=== PATIENT | male | born 1940 | race Caucasian/White ===

== ENCOUNTER → 2018-07-21 10:16 | Outpatient (CLI) | payer MEDICARE, OTHER | END | disposition home or self-care (01) | LOC: D.LABREF 10:16 | DX: M17.11 Unilateral primary osteoarthritis, right knee (principal); Z11.8 Encounter for screening for other infectious and parasitic diseases ==

== ENCOUNTER 2018-09-02 12:45 | Inpatient (IN) | payer MEDICARE, OTHER ==
[2018-08-31 15:56] LABS: BASOPHILS 0.5 % (0-2); EOSINOPHILS 6.1 % (0-7); HEMATOCRIT 40.4 % (42.0-54.0); HEMOGLOBIN 13.5 g/dL (13.5-17.5); IMMATURE GRANULOCYTES 0.2 % (0-5); LYMPHOCYTES 23.1 % (15-50); MCH 31.8 pg (26.0-34.0); MCHC 33.4 g/dL (31.0-37.0); MCV 95.3 fL (80.0-100.0); NEUTROPHILS 62.1 % (40-80); PLATELET COUNT 178 10x3/uL (130-400); RBC 4.24 10x6/uL (4.20-6.10); RDW 14.4 % (11.5-14.5); WBC 6.3 10x3/uL (4.8-10.8)
[2018-08-31 16:15] LABS: APTT 28.2 SECONDS (22.8-39.4); INR 1.12 (0.85-1.17); PROTIME 13.9 SECONDS (11.6-15.0)
[2018-08-31 16:28] LABS: CALCIUM 9.6 mg/dL (8.5-10.1); CREATININE - SERUM 1.1 mg/dL (0.6-1.3)
[2018-08-31 17:08] LABS: APPEARANCE CLEAR (CLEAR); BILIRUBIN NEGATIVE (NEGATIVE); COLOR YELLOW (YELLOW); GLUCOSE NEGATIVE (NEGATIVE); KETONE NEGATIVE (NEGATIVE); NITRITE NEGATIVE (NEGATIVE); PROTEIN NEGATIVE (NEGATIVE); UROBILINOGEN NORMAL (NORMAL)
[2018-08-31 17:09] LABS: BACTERIA FEW /hpf (NONE SEEN); RED CELLS - URINE OCC /hpf (0-5); WHITE CELLS - URINE 0-5 /hpf (0-5)
[~2018-09-02] VITALS: Ht 167.6 cm; Wt 118.2 kg
[~2018-09-02 12:45] MED LIST: ACCOLATE20 MG PO; ACETAMINOPHEN325 MG PO; ADVAIR HFA 230-12 GM INH; AMITIZA24 MCG PO; ASCORBIC ACID500 MG PO; GLUCOPHAGE500 MG PO; JANUVIA100 MG PO; K-TAB10 MEQ PO; LUNESTA2 M1 PO; MAG-OX 400 MG400 MG PO; METOLAZONE5 MG PO; MIRAPEX1 MG PO; PAXIL20 MG PO; PLAVIX75 MG PO; SPIRIVA18 MCG INH; SUPER B COMPLE150 MG PO; TORSEMIDE20 MG PO; TRICOR145 MG PO; UROXATRAL10 MG PO; VITAMIN B-121000 MCG PO; VITAMIN D5000 UNIT PO; ZINC50 MG PO; ZOCOR40 MG PO; ZYLOPRIM300 MG PO
[2018-09-02] MEDS ORDERED: SPIRIVA18 MCG INH (13:46)
[2018-09-02 14:25] VITALS: BP 119/58; BMI 11.0
[2018-09-02 19:32] VITALS: BP 123/63
[2018-09-02 20:00] VITALS: BP 130/58
[2018-09-02 23:46] VITALS: Ht 167.6 cm; Wt 118.2 kg
[2018-09-03] VITALS: BP 125/61
[2018-09-03 03:00] VITALS: BP 121/56
[2018-09-03 05:50] LABS: HEMATOCRIT 36.1 % (42.0-54.0); MCH 31.3 pg (26.0-34.0); MCHC 33.2 g/dL (31.0-37.0); MCV 94.3 fL (80.0-100.0); MEAN PLATELET VOLUME 10.1 fL (7.4-10.4); RBC 3.83 10x6/uL (4.20-6.10); RDW 14.5 % (11.5-14.5); WBC 6.2 10x3/uL (4.8-10.8)
--- NOTE | 2018-09-03 07:35 | OP ---
PATIENT NAME: YOMI GÓMEZ MEDICAL RECORD: [id number] :44 LOCATION:D.[facility] [id number] ADMISSION DATE:09/02/18 SURGEON: ANDRAE PROCTOR DO DATE OF OPERATION: 09/02/2018 PROCEDURE PERFORMED: Right knee quad tendon repair with polyethylene exchange of the right total knee. PREOPERATIVE DIAGNOSIS: Right quad tendon tear following a right total knee. POSTOPERATIVE DIAGNOSIS: Right quad tendon tear following a right total knee. SURGEON: Andrae Proctor DO INDICATIONS: Mr. Gómez is a 78-year-old male who had a knee replacement done at another hospital in November of last year. A couple of weeks after the surgery, he was in the shower fell and felt a pop and felt a palpable defect on the medial side of his knee and loss of strength with extension of the right knee, he did have motion, but he did lose strength. He went to see a surgeon and he did not repair at that time. He came to me last month and said he was tired of dealing with the loss of strength and had been walking on a walker and wanted something done. I told him I could repair that quad tendon and capsule and at the same time, I would swap out his poly and he was okay with that and he was aware of the risks and benefits of the procedure including infection, bleeding, damage to nerve vessels, need for further surgery, rupture of the quad tendon repair and blood clots and even . He signed the consent. DESCRIPTION OF PROCEDURE: The patient was given a block by anesthesia in the preoperative area and taken back to the OR and laid on his right side and a spinal was put in by anesthesia. He was then laid supine and the right lower extremity was prepped and draped in sterile fashion. Timeout was performed, everyone was agreeance with the correct side, site, patient, and procedure. The patient was given 2 grams of Ancef and 80 mg of gentamicin preoperatively. The incision was then marked out from the prior incision and Ioban was placed over the knee. The incision began with a 10 blade scalpel carefully down to the knee itself over the patella. There was some tissue over the knee. However, this was not the VMO tendon and this was opened up. The knee joint was opened up. The polyethylene was removed. It was a #12 and trialed a #14, #14 fit very well. The knee was then thoroughly irrigated and while the knee was being irrigated, the VMO muscle and the scar tissue from the quad tendon repair more proximal was freed up using a pickup and Metzenbaum scissors. Once the plane was developed and a good tissue was discovered, the #14 E-poly anterior stabilized poly was put in and locked into place with a locking mechanism. The knee was then irrigated more and Surgicel beads were placed in the gutters and vancomycin and tobramycin powder were placed in the knee. The quad and capsule were then closed with #2 Ethibond suture in a qglmmb-ys-uadly fashion, had a nice quad tendon repair more proximal as well as the VMO was more approximated to the capsule itself. This was all done with #2 Ethibond. The capsule was then irrigated and more vancomycin and tobramycin powders were placed on top of that and then the skin was closed with 2-0 Vicryl in an inverted interrupted fashion. A ZipLine was placed on the knee. After the ZipLine was placed, Adaptic, 4 x 4's, ABD, Webril, and Mario wrap were placed on the knee. A DARA hose stocking was placed up to the knee. OPERATIVE REPORT [id number] YOMI GÓMEZ The patient was awake during the procedure and did well. He was then taken to PACU in stable condition. Blood loss mgynatdagbtop315 mL. COMPLICATIONS: None. TRANSINT:[id number] Voice Confirmation ID: [id number] DOCUMENT ID: [id number] ANDRAE PROCTOR DO at 0735 CC: [id number] DICTATION DATE: 09/02/181919 GANG PLANK WORKMAN: 09/03/18 0510 [facility] IN [facility] [address] [id number]
[2018-09-03 07:49] LABS: ALBUMIN 2.9 g/dL (3.4-5.0); ALKALINE PHOSPHATASE 23 U/L (46-116); ALT (SGPT) 27 U/L (10-68); BILIRUBIN - TOTAL 0.34 mg/dL (0.2-1.3); CALC OSMOLALITY 284 mosm/kg (275-300); CALCIUM 8.1 mg/dL (8.5-10.1); CARBON DIOXIDE 24.8 mmol/L (21.0-32.0); CHLORIDE - SERUM 105 mmol/L (98-107); CREATININE - SERUM 0.9 mg/dL (0.6-1.3); GLUCOSE 134 mg/dL (74-106); POTASSIUM - SERUM 3.5 mmol/L (3.5-5.1); PROTEIN - SERUM 5.9 g/dL (6.4-8.2); SODIUM 140 mmol/L (136-145); UREA NITROGEN 23 mg/dL (7-18); eGFR NON AFRICAN AMERICAN 87 mL/min (90-120)
[2018-09-03 11:03] VITALS: BP 126/75
[2018-09-03 13:39] LABS: APPEARANCE CLEAR (CLEAR); BILIRUBIN NEGATIVE (NEGATIVE); COLOR YELLOW (YELLOW); GLUCOSE NEGATIVE (NEGATIVE); KETONE NEGATIVE (NEGATIVE); NITRITE NEGATIVE (NEGATIVE); PROTEIN NEGATIVE (NEGATIVE); UROBILINOGEN NORMAL (NORMAL)
[2018-09-03 14:52] LABS: % SATURATION 21 % (15-55); IRON 62 ug/dl (35-150); TOTAL IRON BIND CAPACITY 289 ug/dl (260-445); UNSAT IRON BIND CAPACITY 227 ug/dl (150-375)
[2018-09-03 14:55] VITALS: BP 136/62
--- NOTE | 2018-09-03 14:57 | MORECARE ---
CASE MANAGEMENT DISCHARGE SUMMARY PATIENT: YOMI GÓMEZ UNIT: [id number] ADM DATE: 09/02/18 AGE: 78 : 42 SEX: M ROOM/BED: D.2209 AUTHOR: HUSEYIN KONG PHYSICIAN: REFERRING PHYSICIAN: YA PROCTOR DO DATE OF SERVICE: 09/03/18 Discharge Plan Patient Name: YOMI GÓMEZ Facility[facility]:[place] : 1940 Planned Disposition: Inpatient Rehab Anticipated Discharge Date: 09/05/18 Discharge Date: Expected LOS: 3 Initial Reviewer: [email or web address] Initial Review Date: 09/03/2018 Generated: 09/03/18 3:56 pm DCPIA - Discharge Planning Initial Assessment Updated by [email or web address]: Esther Verduzco on 09/03/18 2:56 pm * Is the patient Alert and Oriented? Yes * How many steps to enter\exit or inside your home? None * PCP Dr. Gibbs * Pharmacy [facility] * Preadmission Environment [facility] * Other Environment [facility] * Facility Name [facility] * ADLs Partial Dependent * Partial ADLs (Assistance needed) Ambulation Transfers * Equipment Bedside Commode Cane CPAP Crutch Oxygen Rolling Walker Wheelchair * Other Equipment [id number] * List name and contact numbers for known caregivers / representatives who currently or will assist patient after discharge: Doris Nile - dtr- [phone] Geovanna Patel - dtr - [phone] Pallavi Michelle - dtr - don't know her number * Verbal permission to speak to the caregivers and representatives has been obtained from the patient. Yes * Community resources currently utilized None * Additional services required to return to the preadmission environment? Yes * Can the patient safely return to the preadmission environment? No * Has this patient been hospitalized within the prior 30 days at any hospital? No Patient Name: YOMI GÓMEZ Page 12927 at 7081 All edits/amendments must be made on the electronic document DICTATION DATE: 09/03/18 3746 CLINICAL TRIAL HEAD: MIRYAM 09/03/18 7921 RPT#: [id number] DC DATE: STATUS: ADM IN [facility] [address] [place] [address] END OF REPORT
--- NOTE | 2018-09-03 15:04 | MORECARE ---
CASE MANAGEMENT DISCHARGE SUMMARY PATIENT: YOMI GÓMEZ UNIT: [id number] ADM DATE: 09/02/18 AGE: 78 : 42 SEX: M ROOM/BED: D.2209 AUTHOR: LUANN,DOC PHYSICIAN: REFERRING PHYSICIAN: YA PROCTOR DO DATE OF SERVICE: 09/03/18 Discharge Plan Patient Name: YOMI GÓMEZ Facility: [facility]:[place] : 1940 Planned Disposition: Inpatient Rehab Anticipated Discharge Date: 09/05/18 Discharge Date: Expected LOS: 3 Initial Reviewer: [email or web address] Initial Review Date: 09/03/2018 Generated: 09/03/18 4:04 pm Comments DCP- Discharge Planning Updated by [email or web address]: Esther Verduzco on 09/03/18 2:[address] Patient Name: YOMI GÓMEZ Admission Status: Elective Accout number: [id number] Admission Date: 09-02-2018 : 1940 Admission Diagnosis: Attending: YA PROCTOR Current LOS: 1 Anticipated DC Date: 09-05-2018 Planned Disposition: Inpatient Rehab Primary Insurance: MEDICARE A & B Discharge Planning Comments: CM met with patient and his daughter, Geovanna to complete initial dc planning assessment. CM educated patient on the CM role and verbal consent given by patient to complete assessment. Patient lives [facility] with his . CM discussed availability of home health, rehab services, and medical equipment and left copies of patient choice list for all of them. At discharge patient feels that he will need to go to inpatient rehab and wants to go here to [facility] Inpatient rehab when medically stable. He and his daughter feels this is a safe discharge. CM will place order for inpatient rehab to eval the patient. CM will continue to follow and will assist as needed with dc plans/needs. Telemarketing Representative: Esther Verduzco RN, [facility] DCPIA - Discharge Planning Initial Assessment Updated by [email or web address]: Esther Verduzco on 09/03/18 2:56 pm * Is the patient Alert and Oriented? Yes * How many steps to enter\exit or inside your home? None * PCP Dr. Gibbs * Pharmacy [facility] * Preadmission Environment [facility] * Other Environment [facility] * Facility Name [facility] * ADLs Partial Dependent * Partial ADLs (Assistance needed) Ambulation Transfers * Equipment Bedside Commode Cane CPAP Crutch Oxygen Rolling Walker Wheelchair * Other Equipment [id number] * List name and contact numbers for known caregivers / representatives who currently or will assist patient after discharge: Doris Dowd - dtr- [phone] Geovanna Patel - dtr - [phone] Pallavi Martinez - dtr - don't know her number * Verbal permission to speak to the caregivers and representatives has been obtained from the patient. Yes * Community resources currently utilized None * Additional services required to return to the preadmission environment? Yes * Can the patient safely return to the preadmission environment? No * Has this patient been hospitalized within the prior 30 days at any hospital? No Last DP export: 09/03/18 1:56 pm Patient Name: YOMI GÓMEZ Page 73711 at 1504 All edits/amendments must be made on the electronic document DICTATION DATE: 09/03/18 1503 SPONGE CLIPPER: MIRYAM 09/03/18 1503 RPT#: [id number] DC DATE: STATUS: ADM IN [facility] [address] [place] [address] END OF REPORT
[2018-09-03 18:31] VITALS: BP 126/58
[2018-09-03 20:00] VITALS: BP 138/71
[2018-09-04] VITALS: BP 130/58
[2018-09-04 03:00] VITALS: BP 126/63
[2018-09-04 05:31] LABS: BASOPHILS 0.3 % (0-2); EOSINOPHILS 4.7 % (0-7); HEMATOCRIT 37.2 % (42.0-54.0); HEMOGLOBIN 12.7 g/dL (13.5-17.5); IMMATURE GRANULOCYTES 0.2 % (0-5); LYMPHOCYTES 19.2 % (15-50); MCH 31.5 pg (26.0-34.0); MCHC 34.1 g/dL (31.0-37.0); MEAN PLATELET VOLUME 9.4 fL (7.4-10.4); MONOCYTES 9.8 % (2-11); NEUTROPHILS 65.8 % (40-80); PLATELET COUNT 164 10x3/uL (130-400); RBC 4.03 10x6/uL (4.20-6.10); RDW 14.5 % (11.5-14.5); WBC 6.4 10x3/uL (4.8-10.8)
[2018-09-04 05:35] LABS: MCV 92.3 fL (80.0-100.0)
[2018-09-04 05:55] LABS: ANION GAP 14.2 mmol/L (8-16); CARBON DIOXIDE 27.3 mmol/L (21.0-32.0); CREATININE - SERUM 1.2 mg/dL (0.6-1.3); POTASSIUM - SERUM 3.5 mmol/L (3.5-5.1)
[2018-09-04 09:10] VITALS: BP 138/67
[2018-09-04 13:02] VITALS: BP 110/53
[2018-09-04 17:32] VITALS: BP 117/54
[2018-09-04 20:00] VITALS: BP 121/53
[2018-09-05] VITALS: BP 118/56
[2018-09-05 03:00] VITALS: BP 120/59
[2018-09-05 05:30] LABS: HEMATOCRIT 36.7 % (42.0-54.0); HEMOGLOBIN 12.6 g/dL (13.5-17.5); MCH 31.7 pg (26.0-34.0); MCHC 34.3 g/dL (31.0-37.0); MCV 92.2 fL (80.0-100.0); MEAN PLATELET VOLUME 10.2 fL (7.4-10.4); PLATELET COUNT 147 10x3/uL (130-400); RBC 3.98 10x6/uL (4.20-6.10); RDW 14.5 % (11.5-14.5); WBC 6.3 10x3/uL (4.8-10.8)
[2018-09-05 05:48] LABS: ANION GAP 11.9 mmol/L (8-16); CALCIUM 9.1 mg/dL (8.5-10.1); CARBON DIOXIDE 30.2 mmol/L (21.0-32.0); CREATININE - SERUM 1.1 mg/dL (0.6-1.3); POTASSIUM - SERUM 3.1 mmol/L (3.5-5.1)
[2018-09-05 07:58] LABS: ANISOCYTOSIS OCC; EOSINOPHILS 4 % (0-7); LYMPHOCYTES 18 % (15-50); MONOCYTES 9 % (2-11); NEUTROPHILS 67 % (40-80); PLATELET ESTIMATE NORMAL; PLATELET MORPHOLOGY PLT CLUMPS PRESENT
[2018-09-05 08:52] VITALS: BP 121/53
[2018-09-05 13:40] VITALS: BP 109/48
[2018-09-05] MEDS ORDERED: ASPIRIN81 MG PO (15:45)
[2018-09-05] MEDS ORDERED: NORCO-10 PO (15:45)
[2018-09-05] MEDS ORDERED: KEFLEX500 MG PO (15:45)
--- NOTE | 2018-09-05 15:55 | MORECARE ---
CASE MANAGEMENT DISCHARGE SUMMARY PATIENT: YOMI GÓMEZ UNIT: [id number] ADM DATE: 09/02/18 AGE: 78 : 42 SEX: M ROOM/BED: D.2209 AUTHOR: LUANN,DOC PHYSICIAN: REFERRING PHYSICIAN: YA PROCTOR DO DATE OF SERVICE: 09/05/18 Discharge Plan Patient Name: YOMI GÓMEZ Facility: [facility]:[place] : 1940 Planned Disposition: Inpatient Rehab Anticipated Discharge Date: 09/05/18 Discharge Date: Expected LOS: 3 Initial Reviewer: [email or web address] Initial Review Date: 09/03/2018 Generated: 09/05/18 4:55 pm Comments DCP- Discharge Planning Updated by [email or web address]: Vicki Flynn on 09/05/18 2:[address] Pt has been approved for Inpt Rehab. Pt agrees with plan. Dr. Proctor notified pt has been accepted. DCP- Discharge Planning Updated by [id number]: Esther Verduzco on 09/03/18 2:[address] Patient Name: YOMI GÓMEZ Admission Status: Elective Accout number: [id number] Admission Date: 09-02-2018 : 1940 Admission Diagnosis: Attending: YA PROCTOR Current LOS: 1 Anticipated DC Date: 09-05-2018 Planned Disposition: Inpatient Rehab Primary Insurance: MEDICARE A & B Discharge Planning Comments: CM met with patient and his daughterGeovanna to complete initial dc planning assessment. CM educated patient on the CM role and verbal consent given by patient to complete assessment. [facility] . CM discussed availability of home health, rehab services, and medical equipment and left copies of patient choice list for all of them. At discharge patient feels that he will need to go to inpatient rehab and wants to go here to [facility] Inpatient rehab when medically stable. He and his daughter feels this is a safe discharge. CM will place order for inpatient rehab to eval the patient. CM will continue to follow and will assist as needed with dc plans/needs. Search Specialist: Esther Verduzco RN, [facility] DCPIA - Discharge Planning Initial Assessment Updated by [email or web address]: Esther Verduzco on 09/03/18 2:56 pm * Is the patient Alert and Oriented? Yes * How many steps to enter\exit or inside your home? None * PCP Dr. Gibbs * Pharmacy [facility] * Preadmission Environment [facility] * Other Environment [facility] * Facility Name [facility] * ADLs Partial Dependent * Partial ADLs (Assistance needed) Ambulation Transfers * Equipment Bedside Commode Cane CPAP Crutch Oxygen Rolling Walker Wheelchair * Other Equipment [id number] * List name and contact numbers for known caregivers / representatives who currently or will assist patient after discharge: Doris Dowd - dtr- [phone] Geovanna Patel - dtr - [phone] Pallavi Martinez - dtr - don't know her number * Verbal permission to speak to the caregivers and representatives has been obtained from the patient. Yes * Community resources currently utilized None * Additional services required to return to the preadmission environment? Yes * Can the patient safely return to the preadmission environment? No * Has this patient been hospitalized within the prior 30 days at any hospital? No Coverage Notice Reviewer: [id number] Iveth Flynn Notice Issued Date-Time: 09/05/2018 15:44 Notice Type: IM Discharge Notice Notice Delivered To: Patient Relationship to Patient: Self Shift Production Supervisor Name: Delivery Method: HAND - Hand Delivered Deanna Days: Prior Verbal Notification: Recipient Understood Notice: Yes Recipient Signature: Yes Med Rec Note Co-signed by Attending: Coverage Notice Comment: IMM EXPLAINED, SIGNED AND COPY GIVEN TO PT AND ONE PLACED ON CHART. Last DP export: 09/03/18 2:04 pm Patient Name: YOMI GÓMEZ Page [phone] at 1555 All edits/amendments must be made on the electronic document DICTATION DATE: 09/05/18 5436 ENGINEER PROCESS: MIRYAM 09/05/18 1559 RPT#: [id number] DC DATE: STATUS: ADM IN [facility] [address] [place] [address] END OF REPORT
[2018-09-05 16:00] VITALS: BP 108/44
--- NOTE | 2018-09-09 16:54 | MORECARE ---
CASE MANAGEMENT DISCHARGE SUMMARY PATIENT: YOMI GÓMEZ UNIT: [id number] ADM DATE: 09/02/18 AGE: 78 : 42 SEX: M ROOM/BED: D.2209 AUTHOR: LUANNDOC PHYSICIAN: REFERRING PHYSICIAN: YA PROCTOR DO DATE OF SERVICE: 09/09/18 Discharge Plan Patient Name: YOMI GÓMEZ Facility: [facility]:[place] : 1940 Planned Disposition: Inpatient Rehab Anticipated Discharge Date: 09/05/18 Discharge Date: 09/05/2018 Expected LOS: 3 Initial Reviewer: [email or web address] Initial Review Date: 09/03/2018 Generated: 09/09/18 5:53 pm Comments DCP- Discharge Planning Updated by [id number]: Vicki Flynn on 09/05/18 2:[address] Pt has been approved for Inpt Rehab. Pt agrees with plan. Dr. Proctor notified pt has been accepted. DCP- Discharge Planning Updated by [email or web address]: Esther Verduzco on 09/03/18 2:[address] Patient Name: YOMI GÓMEZ Admission Status: Elective Accout number: [id number] Admission Date: 09-02-2018 : 1940 Admission Diagnosis: Attending: YA PROCTOR Current LOS: 1 Anticipated DC Date: 09-05-2018 Planned Disposition: Inpatient Rehab Primary Insurance: MEDICARE A & B Discharge Planning Comments: CM met with patient and his daughterGeovanna to complete initial dc planning assessment. CM educated patient on the CM role and verbal consent given by patient to complete assessment. Patient lives [facility] with his . CM discussed availability of home health, rehab services, and medical equipment and left copies of patient choice list for all of them. At discharge patient feels that he will need to go to inpatient rehab and wants to go here to [facility] Inpatient rehab when medically stable. He and his daughter feels this is a safe discharge. CM will place order for inpatient rehab to eval the patient. CM will continue to follow and will assist as needed with dc plans/needs. [place] Spreader: Esther Verduzco RN, [facility] DCPIA - Discharge Planning Initial Assessment Updated by [email or web address]: Esther Verduzco on 09/03/18 2:56 pm * Is the patient Alert and Oriented? Yes * How many steps to enter\exit or inside your home? None * PCP Dr. Gibbs * Pharmacy [facility] * Preadmission Environment [facility] * Other Environment [facility] * Facility Name [facility] * ADLs Partial Dependent * Partial ADLs (Assistance needed) Ambulation Transfers * Equipment Bedside Commode Cane CPAP Crutch Oxygen Rolling Walker Wheelchair * Other Equipment [id number] * List name and contact numbers for known caregivers / representatives who currently or will assist patient after discharge: Doris Baronesumancameron - dtr- [phone] Geovanna Patel - dtr - [phone] Pallavi Martinez - dtr - don't know her number * Verbal permission to speak to the caregivers and representatives has been obtained from the patient. Yes * Community resources currently utilized None * Additional services required to return to the preadmission environment? Yes * Can the patient safely return to the preadmission environment? No * Has this patient been hospitalized within the prior 30 days at any hospital? No Coverage Notice Reviewer: [id number] - Vicki Flynn Notice Issued Date-Time: 09/05/2018 15:44 Notice Type: IM Discharge Notice Notice Delivered To: Patient Relationship to Patient: Self Behavioral Health Specialist Name: Delivery Method: HAND - Hand Delivered Deanna Days: Prior Verbal Notification: Recipient Understood Notice: Yes Recipient Signature: Yes Med Rec Note Co-signed by Attending: Coverage Notice Comment: IMM EXPLAINED, SIGNED AND COPY GIVEN TO PT AND ONE PLACED ON CHART. Last DP export: 09/05/18 2:55 pm Patient Name: YOMI GÓMEZ Page [id number] at 1654 All edits/amendments must be made on the electronic document DICTATION DATE: 09/09/181652 MANUFACTURING PLANT TECHNICIAN: MIRYAM 09/09/181652 RPT#: [id number] DC DATE:09/05/18 STATUS: DIS IN [facility] [address] [place] [address] END OF REPORT
== END 2018-09-05 20:08 | DRG 489 ==
LOC: D.OPS 12:45 → D.MS 19:13 → D.OPS 19:14 → D.MS 19:15
PROVIDERS: Internal Medicine Nephrology; Orthopaedic Surgery; ADMIT Orthopaedic Surgery
PROC: 0LQL0ZZ Repair Right Upper Leg Tendon, Open Approach (ICD-10-PCS; 2018-09-02)
PROC: 0SPC09Z Removal of Liner from Right Knee Joint, Open Approach (ICD-10-PCS; principal; 2018-09-02 15:00)
PROC: 0SUV09Z Supplement Right Knee Joint, Tibial Surface with Liner, Open Approach (ICD-10-PCS; 2018-09-02 15:00)
DX: S76.111A Strain of right quadriceps muscle, fascia and tendon, initial encounter (principal); W18.2XXA Fall in (into) shower or empty bathtub, initial encounter; I25.10 Atherosclerotic heart disease of native coronary artery without angina pectoris; E11.9 Type 2 diabetes mellitus without complications; I11.0 Hypertensive heart disease with heart failure; I50.9 Heart failure, unspecified; J44.9 Chronic obstructive pulmonary disease, unspecified; R33.9 Retention of urine, unspecified; D64.9 Anemia, unspecified

== ENCOUNTER 2018-09-05 17:49 | Inpatient (IN) | payer MEDICARE, OTHER ==
[~2018-09-05] VITALS: Ht 167.6 cm; Wt 117.9 kg
[~2018-09-05 17:49] MED LIST changes: +ASPIRIN81 MG PO; +KEFLEX500 MG PO; +NORCO-10 PO
[2018-09-06 00:19] VITALS: BP 118/53
--- NOTE | 2018-09-06 00:51 | NUR ---
ADMITTED FOR PHYSICAL REHAB AND SERVICES OF DR GARCIA IN ROOM 1111A. CAME TO ROOM AT 1930. ALERT AND ORIENTED. RESPIRATIONS UNLABORED BUT DOES USE CPAP AT NIGHT. BROUGHT HIS OWN CPAP AND RESPIRATORY THERAPY TO ASSESS AND HOOK IT UP AND IS CURRENTLY ON HIM. RIGHT KNEE DRESSING INTACT. AMBULATES WITH MINIMAL ASSISTANCE. NO CURRENT C/O PAIN. ADMISSION ASSESSMENTS DONE. RESTING NOW WITH NO DISTRESS NOTED.
--- NOTE | 2018-09-06 03:10 | NUR ---
RESTING IN BED WITH CPAP ON, NO DISTRESS NOTED. CALL LIGHT IN REACH.
[2018-09-06 05:46] LABS: BASOPHILS 0.4 % (0-2); EOSINOPHILS 6.5 % (0-7); HEMATOCRIT 35.5 % (42.0-54.0); HEMOGLOBIN 11.8 g/dL (13.5-17.5); IMMATURE GRANULOCYTES 0.4 % (0-5); LYMPHOCYTES 21.9 % (15-50); MCHC 33.2 g/dL (31.0-37.0); MCV 93.2 fL (80.0-100.0); MEAN PLATELET VOLUME 9.3 fL (7.4-10.4); MONOCYTES 8.9 % (2-11); NEUTROPHILS 61.9 % (40-80); RBC 3.81 10x6/uL (4.20-6.10); RDW 14.4 % (11.5-14.5); WBC 5.5 10x3/uL (4.8-10.8)
[2018-09-06 06:11] LABS: PLATELET COUNT 193 10x3/uL (130-400)
[2018-09-06 06:16] LABS: ANION GAP 11.6 mmol/L (8-16); CALCIUM 9.5 mg/dL (8.5-10.1); CARBON DIOXIDE 29.8 mmol/L (21.0-32.0); CREATININE - SERUM 1.1 mg/dL (0.6-1.3); POTASSIUM - SERUM 3.4 mmol/L (3.5-5.1)
--- NOTE | 2018-09-06 07:25 | NUR ---
RESTING ON SIDE.CL IN REACH.
--- NOTE | 2018-09-06 07:26 | NUR ---
PT LYING IN BED EYES OPEN WATCHING TV. CL IN REACH. PT DENIES NEEDS OR PAIN. BED IN LOW POSITION. SIDE RAILS X2. RESP EVEN AND UNLABORED. WILL CONTINUE TO MONITOR.
[2018-09-06 08:00] VITALS: BP 126/54
[2018-09-06 10:45] VITALS: Ht 167.6 cm; Wt 117.9 kg
--- NOTE | 2018-09-06 11:11 | NUR ---
PT IN THERAPY. DENIES NEEDS
--- NOTE | 2018-09-06 14:36 | NUR ---
PT LYING IN BED. CL IN REACH. PT DENIES NEEDS OR PAIN. SPEECH THERAPY IN ROOM WITH PT. FAMILY IN ROOM ALSO. WCTM
--- NOTE | 2018-09-06 17:45 | NUR ---
PT SITTING UP EATING DINNER. CL IN REACH. PT DENIES NEEDS OR PAIN. WCTM
--- NOTE | 2018-09-06 19:00 | NUR ---
PATIENT IS SITTING UP ON THE SIDE OF HIS BED. HE'S REQUESTING A LAXATIVE. NO OTHER NEEDS VOICED AT THIS TIME. BED IS DOWN LOW WITH SIDE RAILS UP X2 AND CALL LIGHT IS IN REACH.
--- NOTE | 2018-09-06 20:51 | NUR ---
PATIENT IS RESTING IN HIS BED. MEDICATED WITH MIRALAX PER REQUEST. DENIES ANY OTHER NEEDS. BED IS DOWN LOW WITH SIDE RAILS UP X2. CALL LIGHT IS IN REACH.
[2018-09-06 21:34] VITALS: BP 130/46
[2018-09-07 07:17] LABS: BASOPHILS 0.6 % (0-2); HEMATOCRIT 36.3 % (42.0-54.0); HEMOGLOBIN 12.3 g/dL (13.5-17.5); IMMATURE GRANULOCYTES 0.4 % (0-5); LYMPHOCYTES 24.9 % (15-50); MCH 31.3 pg (26.0-34.0); MCHC 33.9 g/dL (31.0-37.0); MCV 92.4 fL (80.0-100.0); MEAN PLATELET VOLUME 9.8 fL (7.4-10.4); MONOCYTES 8.2 % (2-11); NEUTROPHILS 57.9 % (40-80); PLATELET COUNT 237 10x3/uL (130-400); RBC 3.93 10x6/uL (4.20-6.10); RDW 14.2 % (11.5-14.5)
[2018-09-07 07:20] LABS: CALC OSMOLALITY 284 mosm/kg (275-300); CALCIUM 9.9 mg/dL (8.5-10.1); CARBON DIOXIDE 29.2 mmol/L (21.0-32.0); CHLORIDE - SERUM 102 mmol/L (98-107); CREATININE - SERUM 0.9 mg/dL (0.6-1.3); GLUCOSE 94 mg/dL (74-106); POTASSIUM - SERUM 3.8 mmol/L (3.5-5.1); SODIUM 141 mmol/L (136-145); UREA NITROGEN 25 mg/dL (7-18); eGFR NON AFRICAN AMERICAN 87 mL/min (90-120)
--- NOTE | 2018-09-07 07:36 | NUR ---
ALERT. SITTING UP IN CHAIR. NO C/O PAIN. CL IN REACH.
[2018-09-07 08:00] VITALS: BP 115/58
--- NOTE | 2018-09-07 08:00 | NUR ---
PATIENT IS ALERT/ORIENT. SITTING UP AT THE SIDE OF THE BED TO EAT BREAKFAST. CALL LIGHT WITH REACH. VOICES NO NEEDS AT THIS TIME
--- NOTE | 2018-09-07 09:56 | NUR ---
PATIENT IN REHAB ROOM. C/O RIGHT LEG PAIN. PRN NORCO GIVEN TO PATIENT PER PATIENT REQUEST
--- NOTE | 2018-09-07 13:22 | NUR ---
PATIENT WORKING WITH PHYSICAL THERAPIST. WALKING UP AND DOWN HALLWAY WITH WHEEELED WALKER. GAIT BELT.
--- NOTE | 2018-09-07 18:55 | NUR ---
PATIENT IS SITTING UP IN HIS WHEELCHAIR. HE DENIES ANY NEEDS. CALL LIGHT IS IN REACH.
[2018-09-07 20:18] VITALS: BP 123/69
--- NOTE | 2018-09-07 20:18 | NUR ---
PATIENT IS SITTING UP ON THE SIDE OF THE BED. HIS VITAL SIGNS ARE STABLE. HE STATES HE WILL TAKE A SHOWER TONIGHT. DENIES ANY OTHER NEEDS.
--- NOTE | 2018-09-08 | NUR ---
PATIENT IS SLEEPING. WEARING HIS CPAP MACHINE. BED IS DOWN LOW WITH SIDE RAILS UP X2. CALL LIGHT IN REACH.
--- NOTE | 2018-09-08 04:05 | NUR ---
PATIENT SLEEPING. BED DOWN LOW. CALL LIGHT IN REACH.
[2018-09-08 08:05] VITALS: BP 123/63
--- NOTE | 2018-09-08 09:00 | NUR ---
PT AM MEDS ADMINISTERED. PT PAIN MEDICATION REQ AND REC'D. WCDESI.
[2018-09-08 19:00] VITALS: BP 125/66
--- NOTE | 2018-09-08 22:39 | NUR ---
PATIENT RECEIVED SITTING UP IN BED WATCHING TV. PATIENT VITAL SIGNS & ASSESMENT DONE. PATIENT HAD NO C/O PAIN OR DISTRESS. BED LOW. ALARM ON. CALL LIGHT WITHIN REACH. WILL CONTINUE TO MONITOR.
--- NOTE | 2018-09-08 23:04 | NUR ---
PT ASLEEP NO NEEDS NOTED, FLUIDS AND CALL LIGHT WITHIN REACH
[2018-09-09 07:09] LABS: BASOPHILS 1.1 % (0-2); EOSINOPHILS 8.7 % (0-7); HEMOGLOBIN 11.8 g/dL (13.5-17.5); IMMATURE GRANULOCYTES 0.2 % (0-5); LYMPHOCYTES 26.8 % (15-50); MCH 31.4 pg (26.0-34.0); MCHC 33.7 g/dL (31.0-37.0); MCV 93.1 fL (80.0-100.0); MEAN PLATELET VOLUME 9.4 fL (7.4-10.4); MONOCYTES 8.5 % (2-11); NEUTROPHILS 54.7 % (40-80); PLATELET COUNT 233 10x3/uL (130-400); RBC 3.76 10x6/uL (4.20-6.10); RDW 14.2 % (11.5-14.5); WBC 4.7 10x3/uL (4.8-10.8)
[2018-09-09 07:22] LABS: CALC OSMOLALITY 278 mosm/kg (275-300); CALCIUM 9.9 mg/dL (8.5-10.1); CARBON DIOXIDE 26.6 mmol/L (21.0-32.0); CHLORIDE - SERUM 99 mmol/L (98-107); GLUCOSE 128 mg/dL (74-106); POTASSIUM - SERUM 3.9 mmol/L (3.5-5.1); SODIUM 136 mmol/L (136-145); UREA NITROGEN 27 mg/dL (7-18); eGFR NON AFRICAN AMERICAN 77 mL/min (90-120)
[2018-09-09 08:00] VITALS: BP 119/59
--- NOTE | 2018-09-09 09:30 | NUR ---
PT AM MEDS ADMINSITERED BY STUDENT NURSES. PT DENIES NEEDS. WCTM.
--- NOTE | 2018-09-09 11:45 | NUR ---
PT ASSISTED OFF CPM MACHINE SO THAT HE WILL BE ABLE TO EAT LUNCH. WCTM.
--- NOTE | 2018-09-09 13:15 | NUR ---
PT PLACED BACK ON CPM MACHINE.
--- NOTE | 2018-09-09 14:15 | NUR ---
PT TAKEN OFF CPM MACHINE TO PARTICIPATE IN THERAPY.
[2018-09-09 19:00] VITALS: BP 135/68
--- NOTE | 2018-09-09 19:36 | NUR ---
AWAKE AND ALERT. RESTING IN BED WITH RESPIRATIONS UNLABORED. 7 DAY DRESSING INTACT TO RIGHT KNEE. USES CPAP AT HS. NO CURRENT C/O DISCOMFORTS. NO DISTRESS NOTED. CALL LIGHT IN REACH.
--- NOTE | 2018-09-10 02:03 | NUR ---
RESTING IN BED WITH EYES CLOSED. RESPIRARTIONS UNLABORED. NO DISTRESS NOTED.
--- NOTE | 2018-09-10 05:24 | NUR ---
QUIET HOURS. AWAKE AND ALERT. NO DISTRESS NOTED.
[2018-09-10 08:00] VITALS: BP 128/56
--- NOTE | 2018-09-10 10:25 | NUR ---
PT AM MEDS ADMINISTERED BY STUDENT NURSE OBSERVED BY INSTRUCTOR AND THIS NURSE. PT DENIES NEEDS. WCTM.
--- NOTE | 2018-09-10 17:35 | NUR ---
PT SITTING UP EATING DINNER, DENIES NEEDS. WCTM.
--- NOTE | 2018-09-10 18:15 | NUR ---
RESTING QUIETLY IN BED. NO S/S DISTRESS. CALL LIGHT IN REACH. BED IN LOWEST POSITION.
[2018-09-10 19:40] VITALS: BP 158/72
--- NOTE | 2018-09-10 19:41 | NUR ---
AWAKE AND ALERT. SITTING IN WHEELCHAIR IN ROOM. RESPIRATIONS UNLABORED. DRESSING TO RIGHT KNEE DRY AND INTACT. NO C/O PAIN. NO DISTRESS NOTED.
--- NOTE | 2018-09-11 00:12 | NUR ---
RESTING IN BED WITH NO DISTRESS NOTED. CPAP ON. CALL LIGHT IN REACH.
--- NOTE | 2018-09-11 06:15 | NUR ---
QUIET HOURS. RESTING IN BED WITH NO DISTRESS NOTED.
--- NOTE | 2018-09-11 07:15 | NUR ---
RECEIVED REPORT. SITTING UP IN BED ALERT AND ORIENTED X4. DENIES ANY NEEDS OR PAIN. RR EVEN AND UNLABORED. CALL LIGHT WITHIN REACH, FALL PRECAUTIONS IN PLACE
[2018-09-11 08:10] VITALS: BP 135/60
--- NOTE | 2018-09-11 08:10 | NUR ---
ADMININSTERED MEDICATIONS WHOLE WITHOUT DIFFICULTY. DENIES ANY PAIN OR NEEDS. SITTING UP ON SIDE OF BED. VS STABLE. R KNEE 7 DAY DRESSING DATED 09/05 C/D/I. CALL LIGHT WITHIN REACH, FALL PRECAUTIONS IN PLACE
--- NOTE | 2018-09-11 08:30 | NUR ---
PLACED PT ON CPM RIGHT KNEE. CALL LIGHT AND PHONE WITHIN REACH
--- NOTE | 2018-09-11 11:15 | NUR ---
CPM REMOVED FROM RIGHT KNEE
--- NOTE | 2018-09-11 13:05 | NUR ---
SITTING UP IN BED, REQUESTED CPM TO RT KNEE. CALL LIGHT WITHIN REACH, FALL PRECAUTIONS IN PLACE
--- NOTE | 2018-09-11 16:17 | NUR ---
SBA TO RESTROOM WITH WALKER
--- NOTE | 2018-09-11 17:19 | NUR ---
SITTING UP ON SIDE OF BED EATING DINNER. DENIES ANY NEEDS OR PAIN. CALL LIGHT WITHIN REACH, FALL PRECAUTIONS IN PLACE
--- NOTE | 2018-09-11 19:30 | NUR ---
AWAKE AND ALERT. SITTING ON SIDE OF BED. STATED HE JUST WALKED DOWN TO THERAPY AND BACK AND DID WELL. ENCOURAGED TO KEEP UP THE GOOD WORK. RESPIRATIONS UNLABOPRED. NO DISTRESS NOTED.
[2018-09-11 19:44] VITALS: BP 160/78
--- NOTE | 2018-09-12 01:52 | NUR ---
CONTINUES RESTING IN BED WITH EYES CLOSED AND RESPIRATIONS UNLABORED. NO DISTRESS NOTED.
[2018-09-12 06:44] LABS: BASOPHILS 0.6 % (0-2); EOSINOPHILS 5.3 % (0-7); HEMATOCRIT 39.8 % (42.0-54.0); HEMOGLOBIN 13.3 g/dL (13.5-17.5); IMMATURE GRANULOCYTES 0.3 % (0-5); LYMPHOCYTES 28.6 % (15-50); MCH 31.1 pg (26.0-34.0); MCHC 33.4 g/dL (31.0-37.0); MCV 93.2 fL (80.0-100.0); MEAN PLATELET VOLUME 9.3 fL (7.4-10.4); MONOCYTES 7.5 % (2-11); NEUTROPHILS 57.7 % (40-80); RBC 4.27 10x6/uL (4.20-6.10); RDW 14.5 % (11.5-14.5); WBC 6.4 10x3/uL (4.8-10.8)
[2018-09-12 07:01] LABS: CALC OSMOLALITY 282 mosm/kg (275-300); CALCIUM 9.9 mg/dL (8.5-10.1); CARBON DIOXIDE 29.4 mmol/L (21.0-32.0); CHLORIDE - SERUM 102 mmol/L (98-107); GLUCOSE 93 mg/dL (74-106); POTASSIUM - SERUM 4.1 mmol/L (3.5-5.1); SODIUM 140 mmol/L (136-145); UREA NITROGEN 23 mg/dL (7-18); eGFR NON AFRICAN AMERICAN 77 mL/min (90-120)
[2018-09-12 07:22] LABS: PLATELET COUNT 282 10x3/uL (130-400)
--- NOTE | 2018-09-12 07:30 | NUR ---
PT SITTING UP ON SIDE OF BED. CALL LIGHT IN REACH. PT DENIES NEEDS OR PAIN. BED IN LOW POSITION. SIDE RAILS X2. RESP EVEN AND UNLABORED. WILL CONTINUE TO MONITOR.
[2018-09-12 07:34] VITALS: BP 121/56
--- NOTE | 2018-09-12 11:38 | NUR ---
PT LYING IN BED WATCHING TV. PT DENIES NEEDS AT THIS TIME. RIGHT KNEE DRESSING C/D/I. CALL LIGHT IN REACH.
--- NOTE | 2018-09-12 15:05 | NUR ---
PT LYING IN BED. CALL LIGHT IN REACH. PT DENIES ANY NEEDS AT THIS TIME. WCTM.
--- NOTE | 2018-09-12 17:32 | NUR ---
PT SITTING UP ON SIDE OF BED EATING DINNER. DENIES ANY NEEDS OR PAIN. CALL LIGHT IN REACH. WCTM. PT LAST BM 09/10/18. PT DENIES NEEDS FOR BM MEDS. DC'ING IN THE AM.
--- NOTE | 2018-09-12 20:01 | NUR ---
FAMILY MEMBERS AT BEDSIDE, CALL LIGHT IN REACH.
--- NOTE | 2018-09-12 22:11 | NUR ---
PT UP ON SIDE OF BED, PLEASANT, FAMILY AT BEDSIDE, FLUIDS AND CALL LIGHT WITHIN REACH
[2018-09-12 23:40] VITALS: BP 123/60
--- NOTE | 2018-09-13 02:34 | NUR ---
REST IN BED, CALL LIGHT IN REACH.
--- NOTE | 2018-09-13 07:20 | NUR ---
PT LYING IN BED WATCHING TV. CALL LIGHT IN REACH. PT DENIES NEEDS OR PAIN AT THIS TIME. BED IN LOW POSITION. SIDE RAILS X2. RESP EVEN AND UNLABORED NO DISTRESS NOTED. WILL CONTINUE TO MONITOR.
--- NOTE | 2018-09-13 07:51 | NUR ---
SITTING UP EATING BREAKFAST. NO DISTRESS NOTED.
--- NOTE | 2018-09-13 09:27 | RHP ---
PATIENT: YOMI GÓMEZ MEDICAL RECORD: [id number] ACCOUNT: [id number] LOCATION:[facility] : 44 ADMISSION DATE: 09/05/18 REHABILITATION HISTORY AND PHYSICAL EXAMINATION POST ADMISSION PHYSICIAN EXAMINATION DATE OF ADMISSION: 09/05/2018. ADMITTING DIAGNOSIS: Disuse myopathy. 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 He is a morbidly obese gentleman who continues to have postop complications after a right knee. He has progressively worsened with his weakness, debility, and pain. He was admitted to the [facility] for elective surgery after being found to have a right knee quadriceps tear, underwent surgical repair on 09/02/2018 of a right knee tendon and right total knee poly exchange. He has got a history of seizures, restless legs, diabetes, coronary artery disease, CHF, COPD, arthritis. He has had some postop complications with increased pain, urinary incontinence, and retention requiring medication and Mcdaniel placement. He has also been monitored closely for urinary output and pain. He is high risk for bleeding. He has cardiac complications secondary to history of coronary artery bypass grafting and history of COPD, has been requiring increased supplemental O2. He has got proximal muscle weakness and shortness of breath. He has got dyspnea on exertion, morbid obesity. He has got impaired mobility. He is a high fall risk and also self-care deficit. These are all barriers to his discharge home because his is actually disabled. He lives at [facility] in an apartment, was moderately independent with rolling walker for mobility and independent with ADLs until he continued to have a steady decline in his independence due to increased pain and weakness. He is currently set up for max assist for ADLs, moderate assist to max assist for mobility. He and his family plan for him to be able to return home at his prior level of functioning or better after his inpatient stay. COMORBIDITIES: In this patient include morbid obesity, ruptured quadriceps tendon pain, sleep apnea, diabetes, coronary artery disease, hypertension, anemia, urinary retention, weakness, debility, impaired mobility, and self-care deficits. PAST MEDICAL HISTORY: Significant for seizures, restless legs, allergies, diabetes, hypertension, ID in the past, coronary artery disease, CHF, hyperlipidemia, COPD, obstructive sleep apnea, skin cancers, history of tobacco use, and depression. PAST SURGICAL HISTORY: Includes cataracts, coronary artery bypass grafting. He has had AAA repair in the past. He has had bilateral aortic valve replacements. He has got a left knee replaced and right knee replaced. ALLERGIES: PENICILLIN, SULFA, DEMEROL, AND ZOLOFT. CURRENT MEDICATIONS: Include zinc sulfate 220 b.i.d. He is on Floranex 460 daily. He is on vitamin B complex daily. He is on Tudorza 1 actuation b.i.d., Januvia 100 mg with breakfast, Paxil 20 mg daily, metformin 500 mg b.i.d. with meals, Amitiza 24 mcg b.i.d., B12 1000 mcg daily, Plavix 75 mg daily, vitamin D HISTORY AND PHYSICAL [id number] DALIA,BILL 5000 units daily, allopurinol 300 mg daily, Uroxatral 10 mg daily. He is on Zaroxolyn 5 mg q.48 hours, Demadex 20 mg b.i.d., Zocor 80 mg q.h.s., potassium 40 mEq mg q.i.d., Mirapex 5 mg q.h.s., Holton 10/325 one tab q.4 hours p.r.n., Mag-Ox 400 mg b.i.d., Advair 2 puffs b.i.d., TriCor 145 mg daily, Lunesta 2 mg q.h.s., Keflex 500 mg b.i.d., aspirin chewable 81 mg daily, and Tylenol 650 q.4 hours p.r.n. pain. HABITS: Does have a history of tobacco use. FAMILY HISTORY: Noncontributory. SOCIAL HISTORY: The patient hopes to return back home back to [place] with his . REVIEW OF SYSTEMS: GENERAL: Does complain of weakness and fatigue. HEENT: Denies cold, cough, or congestion. CARDIOVASCULAR: Denies chest pain. PHYSICAL EXAMINATION: VITAL SIGNS: Stable, afebrile. GENERAL: A morbidly obese gentleman in no acute distress, alert upon exam. He is 5 feet 6, 260. HEENT: Normocephalic and atraumatic. Mucosa moist. NECK: Supple. No lymphadenopathy. LUNGS: Clear at this time in upper [place]. HEART: Regular rate and rhythm. No murmurs, rubs or gallops. ABDOMEN: Benign. EXTREMITIES: No clubbing, cyanosis or edema. The postop area looks actually pretty good at this time. NEUROLOGIC: He does have noted proximal muscle weakness. LABORATORY DATA: White count is 5.5, H&H of 12 and 35, and platelet count is 193. Sodium is 138, potassium 3.4, BUN and creatinine of 28 and 1.1, and blood sugar is noted to be 100. ASSESSMENT: This is a 78-year-old gentleman admitted to the rehab with a working diagnosis of disuse myopathy. The patient has potential to make improvement. We instituted the following multidisciplinary therapies including, but not limited to physical, occupational, respiratory, speech, nutritional services, prosthetics and orthotics. Given his complex medical condition and risks of more complications, rehabilitation services cannot be provided at a low level of care such as skilled nurse facility. PLAN: 1. Admit to [facility] to include the following therapies. A. Physical therapy to improve gait, all transfer skills and bed mobility to a modified independent level. B. Occupational therapy to improve activities of daily living to a modified independent level. C. Case management to assist with discharge planning and placement options. D. Nutrition to assist with nutritional needs. E. Rehabilitation nursing to assist in monitoring the patient's underlying medical condition and to assist with any type of bowel and bladder management. 2. The patient's current medications and medical care will be continued. HISTORY AND PHYSICAL [id number] YOMI GÓMEZ 3. The patient will be placed on standard fall precautions. 4. We will continue on current potassium dosage. I am going to follow up another potassium in the a.m. 5. We will discuss with care team and staffing in the a.m. and also admit him tomorrow. TRANSINT:[id number] Voice Confirmation ID: [id number] DOCUMENT ID: [id number] TREVOR notes whether there has been none or any medical/functional change since admission: - No change since preadmission screen. TREVOR attests patient continues to be appropriate for IRF: - Continues to be appropriate. DANYA GARCIA MD at 0927 CC: [id number] DICTATION DATE: 09/06/18833 SHEEPSKIN PICKLER: 09/06/18 0950 ADM IN [facility] [address] [place] [address]
--- NOTE | 2018-09-13 10:32 | NUR ---
PT SITTING UP ON SIDE OF BED READY TO DC. PAPERWORK SIGNED. BELONGINGS GATHERED TOGETHER. WCTM CALL LIGHT IN REACH.
--- NOTE | 2018-09-13 10:53 | NUR ---
PATIENT DISCHARGING HOME TODAY WITH FAMILY. [facility] WILL PROVIDE [facility]APY AT HOME. [facility] WILL DELIVER A CPM TO PATIENT HOME. DR. BELLA 09/21/18 @ 9:00, DR. PROCTOR 09/22/18 @ 10:30. PATIENT CHOICE FORM FOR HOME HEALTH AND [facility] FORMS SIGNED AND COPIES GIVEN TO PATIENT AND FILED IN CHART. DISCHARGE INSTRUCTIONS WITH [facility] DATA FAXED TO PCP AND TO HOME HEALTH.
--- NOTE | 2018-09-13 11:02 | NUR ---
PT LEFT VIA WHEELCHAIR. [facility] CAME AND GOT PT. ALL OF BELONGINGS WERE TAKEN WITH PT.
== END 2018-09-13 11:03 | disposition home health service (06) | DRG 93 ==
LOC: D.REHAB 17:49
PROVIDERS: ADMIT Emergency Medicine
DX: G72.89 Other specified myopathies (principal); E66.01 Morbid (severe) obesity due to excess calories; G47.30 Sleep apnea, unspecified; I25.10 Atherosclerotic heart disease of native coronary artery without angina pectoris; I10 Essential (primary) hypertension; D64.9 Anemia, unspecified; R33.9 Retention of urine, unspecified; R53.1 Weakness; R53.81 Other malaise; E11.65 Type 2 diabetes mellitus with hyperglycemia; I50.9 Heart failure, unspecified; R06.00 Dyspnea, unspecified

== ENCOUNTER → 2018-11-29 12:42 | Outpatient (CLI) | payer MEDICARE, OTHER ==
[~2018-11-29 12:42] MED LIST changes: +BACLOFEN20 M1 PO
== END | disposition home or self-care (01) ==
LOC: D.MRI 12:42
DX: M54.16 Radiculopathy, lumbar region (principal)

== ENCOUNTER 2019-02-08 17:12 | Emergency (ER) | payer MEDICARE ==
[~2019-02-08] VITALS: Ht 167.6 cm; Wt 111.4 kg
[~2019-02-08 17:12] MED LIST changes: -BACLOFEN20 M1 PO
[2019-02-08 17:21] VITALS: Ht 167.6 cm; Wt 111.4 kg
[2019-02-08] MEDS ORDERED: BACLOFEN20 M1 PO (18:49)
[2019-02-08 19:26] VITALS: BP 148/71
== END 2019-02-08 19:11 | disposition home or self-care (01) ==
LOC: D.ER 17:12
DX: S09.90XA Unspecified injury of head, initial encounter (principal); W18.30XA Fall on same level, unspecified, initial encounter; Y93.89 Activity, other specified; Y92.019 Unspecified place in single-family (private) house as the place of occurrence of the external cause; S49.92XA Unspecified injury of left shoulder and upper arm, initial encounter

== ENCOUNTER → 2021-01-03 14:56 | Outpatient (CLI) | payer MEDICARE ==
[2019-02-08 17:21] VITALS: BMI 39.6
[~2021-01-03 14:56] MED LIST changes: +BACLOFEN20 M1 PO
== END | disposition home or self-care (01) ==
LOC: D.LABREF 14:56
PROVIDERS: ATTEND Urology
DX: R41.0 Disorientation, unspecified (principal); N47.1 Phimosis